=== PATIENT | male | born 1965 | race Caucasian/White ===

== ENCOUNTER 2018-02-13 17:37 | Emergency (ER) | payer SELFPAY, OTHER | END 2018-02-13 20:02 | disposition left against medical advice (07) | LOC: E/R 17:37 | DX: Z53.21 Procedure and treatment not carried out due to patient leaving prior to being seen by health care provider (principal) ==

== ENCOUNTER 2018-03-14 09:50 | Inpatient (IN) | payer OTHER ==
[2018-03-14] MEDS ORDERED: NACL 0.9% 3 ML SYG IV (12:30)
[2018-03-14] MEDS ORDERED: ZOLPIDEM 5 MG TAB PO (12:30)
[2018-03-14] MEDS ORDERED: ONDANSETRON 4 MG INJ IV (12:30)
[2018-03-14] MEDS: D5W-0.45 NACL + KCL 20 MEQ 1,000 ML IV ×3 (12:32→23:15)
[2018-03-14] MEDS: morphine SULFATE/PF (2 MG/2 ML) SYG IV ×3 (12:32→20:29)
[2018-03-14] MEDS: PANTOPRAZOLE 40 MG INJ IV ×2 (12:32→20:35)
[2018-03-14 12:49] LABS: ADD MAN DIFF? NO
[2018-03-14 12:50] LABS: WHITE BLOOD COUNT 4.4 10^3/ul (4.8-10.8)
[2018-03-14 12:51] LABS: BASOPHIL # 0.1 10^3/ul (0.0-0.1); BASOPHILS % 1.4 % (0.0-2.0); EOSINOPHILS # 0.1 10^3/ul (0.0-0.5); EOSINOPHILS % 2.7 % (0.0-7.0); HEMATOCRIT 41.9 % (42.0-52.0); HEMOGLOBIN 14.4 g/dl (14.0-18.0); LYMPHOCYTES # 2.2 10^3/ul (0.8-2.9); LYMPHOCYTES % 49.1 % (15.0-51.0); MEAN CORPUSCULAR HEMOGLOBIN 30.9 pg (29.0-33.0); MEAN CORPUSCULAR HGB CONC 34.4 g/dl (32.0-37.0); MEAN CORPUSCULAR VOLUME 89.9 fl (82.0-101.0); MEAN PLATELET VOLUME 8.6 fl (7.4-10.4); MONOCYTE # 0.6 10^3/ul (0.3-0.9); MONOCYTES % 13.6 % (0.0-11.0); NEUTROPHIL # 1.5 10^3/ul (1.6-7.5); PLATELET COUNT 275 10^3/UL (140-415); RED BLOOD COUNT 4.66 10^6/ul (4.70-6.10); RED CELL DISTRIBUTION WIDTH 13.8 % (11.5-14.5)
[2018-03-14 13:13] LABS: LIPASE 74 U/L (23-300)
[2018-03-14 13:23] LABS: ALANINE AMINOTRANSFERASE 19 IU/L (13-69); ALBUMIN 3.8 g/dl (3.3-4.9); ALBUMIN/GLOBULIN RATIO 1.26; ALKALINE PHOSPHATASE 67 IU/L (42-121); ANION GAP 7 (5-13); ASPARTATE AMINO TRANSFERASE 27 IU/L (15-46); BILIRUBIN,INDIRECT 0.2 mg/dl (0-1.1); BILIRUBIN,TOTAL 0.2 mg/dl (0.2-1.3); BLOOD UREA NITROGEN 14 mg/dl (7-20); CALCIUM 8.5 mg/dl (8.4-10.2); CARBON DIOXIDE 31 mmol/L (21-31); CHLORIDE 100 mmol/L (97-110); CREATININE 0.67 mg/dl (0.61-1.24); Estimated GFR > 60 mL/min (>60); GLUCOSE 80 mg/dl (70-220); POTASSIUM 4.4 mmol/L (3.5-5.1); SODIUM 138 mmol/L (135-144); TOTAL PROTEIN 6.8 g/dl (6.1-8.1)
[2018-03-14] MEDS ORDERED: PROPOFOL 40 ML (17:55)
[2018-03-14] MEDS ORDERED: LIDOCAINE 2% (SDV) 5 ML INJ (17:55)
[2018-03-14] MEDS: SUCRALFATE 1 GM TAB PO (20:33)
[2018-03-14] MEDS: LORAZEPAM 2 MG INJ IV (21:00)
[2018-03-15] MEDS: D5W-0.45 NACL + KCL 20 MEQ 1,000 ML IV ×7 (01:27→23:00)
[2018-03-15] MEDS: morphine SULFATE/PF (2 MG/2 ML) SYG IV ×4 (01:40→20:45)
[2018-03-15] MEDS: PANTOPRAZOLE 40 MG INJ IV ×2 (05:38→18:12)
[2018-03-15 05:55] LABS: ADD MAN DIFF? NO
[2018-03-15 05:59] LABS: BASOPHIL # 0.1 10^3/ul (0.0-0.1); EOSINOPHILS # 0.1 10^3/ul (0.0-0.5); EOSINOPHILS % 2.1 % (0.0-7.0); HEMATOCRIT 39.3 % (42.0-52.0); HEMOGLOBIN 13.4 g/dl (14.0-18.0); LYMPHOCYTES # 1.5 10^3/ul (0.8-2.9); LYMPHOCYTES % 29.2 % (15.0-51.0); MEAN CORPUSCULAR HEMOGLOBIN 30.8 pg (29.0-33.0); MEAN CORPUSCULAR HGB CONC 34.1 g/dl (32.0-37.0); MEAN CORPUSCULAR VOLUME 90.3 fl (82.0-101.0); MEAN PLATELET VOLUME 8.9 fl (7.4-10.4); MONOCYTE # 0.6 10^3/ul (0.3-0.9); MONOCYTES % 11.3 % (0.0-11.0); NEUTROPHIL # 2.9 10^3/ul (1.6-7.5); NEUTROPHILS % 56.4 % (39.0-77.0); PLATELET COUNT 232 10^3/UL (140-415); RED BLOOD COUNT 4.35 10^6/ul (4.70-6.10); RED CELL DISTRIBUTION WIDTH 13.2 % (11.5-14.5)
[2018-03-15 05:59] LABS: WHITE BLOOD COUNT 5.1 10^3/ul (4.8-10.8)
[2018-03-15 06:18] LABS: ALANINE AMINOTRANSFERASE 25 IU/L (13-69); ALBUMIN 3.3 g/dl (3.3-4.9); ALBUMIN/GLOBULIN RATIO 1.26; ALKALINE PHOSPHATASE 72 IU/L (42-121); ANION GAP 7 (5-13); ASPARTATE AMINO TRANSFERASE 24 IU/L (15-46); BILIRUBIN,INDIRECT 0.5 mg/dl (0-1.1); BILIRUBIN,TOTAL 0.5 mg/dl (0.2-1.3); BLOOD UREA NITROGEN 8 mg/dl (7-20); CALCIUM 8.5 mg/dl (8.4-10.2); CARBON DIOXIDE 30 mmol/L (21-31); CHLORIDE 101 mmol/L (97-110); CREATININE 0.61 mg/dl (0.61-1.24); Estimated GFR > 60 mL/min (>60); GLUCOSE 109 mg/dl (70-220); PHOSPHORUS 3.9 mg/dl (2.5-4.9); POTASSIUM 4.1 mmol/L (3.5-5.1); SODIUM 138 mmol/L (135-144); TOTAL PROTEIN 5.9 g/dl (6.1-8.1)
[2018-03-15 06:28] LABS: HEMOGLOBIN A1C 4.9 % (0-5.9)
[2018-03-15] MEDS: LORAZEPAM 2 MG INJ IV ×2 (08:11→18:08)
[2018-03-15] MEDS: SUCRALFATE 1 GM TAB PO ×4 (08:11→20:45)
[2018-03-15] MEDS: CHLORDIAZEPOXIDE 25 MG CAP PO ×2 (13:25→21:59)
[2018-03-15] MEDS: VENLAFAXINE 75 MG TABLET PO (13:27)
[2018-03-15] MEDS: PROPRANOLOL 40 MG TAB PO (20:47)
[2018-03-16] MEDS: morphine SULFATE/PF (2 MG/2 ML) SYG IV ×4 (01:11→14:52)
[2018-03-16] MEDS: D5W-0.45 NACL + KCL 20 MEQ 1,000 ML IV ×5 (04:07→23:00)
[2018-03-16] MEDS: PANTOPRAZOLE 40 MG INJ IV ×2 (05:41→17:46)
[2018-03-16 06:02] LABS: ADD MAN DIFF? NO
[2018-03-16 06:08] LABS: BASOPHILS % 0.7 % (0.0-2.0); EOSINOPHILS # 0.1 10^3/ul (0.0-0.5); EOSINOPHILS % 2.4 % (0.0-7.0); HEMATOCRIT 36.5 % (42.0-52.0); HEMOGLOBIN 12.6 g/dl (14.0-18.0); LYMPHOCYTES # 1.5 10^3/ul (0.8-2.9); MEAN CORPUSCULAR HEMOGLOBIN 30.9 pg (29.0-33.0); MEAN CORPUSCULAR HGB CONC 34.5 g/dl (32.0-37.0); MEAN CORPUSCULAR VOLUME 89.5 fl (82.0-101.0); MEAN PLATELET VOLUME 8.9 fl (7.4-10.4); MONOCYTE # 0.6 10^3/ul (0.3-0.9); MONOCYTES % 9.5 % (0.0-11.0); NEUTROPHIL # 3.6 10^3/ul (1.6-7.5); NEUTROPHILS % 62.1 % (39.0-77.0); PLATELET COUNT 208 10^3/UL (140-415); RED BLOOD COUNT 4.08 10^6/ul (4.70-6.10); RED CELL DISTRIBUTION WIDTH 12.9 % (11.5-14.5)
[2018-03-16 06:08] LABS: WHITE BLOOD COUNT 5.9 10^3/ul (4.8-10.8)
[2018-03-16 06:33] LABS: ANION GAP 5 (5-13); BLOOD UREA NITROGEN 5 mg/dl (7-20); CALCIUM 8.3 mg/dl (8.4-10.2); CARBON DIOXIDE 28 mmol/L (21-31); CHLORIDE 100 mmol/L (97-110); CREATININE 0.55 mg/dl (0.61-1.24); Estimated GFR > 60 mL/min (>60); GLUCOSE 107 mg/dl (70-220); SODIUM 133 mmol/L (135-144)
[2018-03-16] MEDS: [UNRECOGNIZED DRUG - REMARK] XX (08:03)
[2018-03-16] MEDS: SUCRALFATE 1 GM TAB PO ×4 (08:04→21:21)
[2018-03-16] MEDS: VENLAFAXINE 75 MG TABLET PO (08:04)
[2018-03-16] MEDS: CHLORDIAZEPOXIDE 25 MG CAP PO ×3 (08:04→21:19)
[2018-03-16] MEDS: PROPRANOLOL 40 MG TAB PO ×2 (08:05→21:21)
[2018-03-16] MEDS: THIAMINE 100 MG TAB PO (08:08)
[2018-03-16] MEDS: LORAZEPAM 2 MG INJ IV ×3 (11:18→23:00)
[2018-03-16] MEDS: MULTIVITAMINS 10 ML, FOLIC ACID 1 MG in SOD CHLORIDE 0.9% 1,000 ML IVPB (11:44)
[2018-03-16] MEDS: morphine LIQ (10 MG/5 ML) CUP PO ×2 (19:10→23:00)
[2018-03-17] MEDS: D5W-0.45 NACL + KCL 20 MEQ 1,000 ML IV ×3 (06:47→17:47)
[2018-03-17] MEDS: PANTOPRAZOLE 40 MG INJ IV ×2 (06:58→17:47)
[2018-03-17] MEDS: [UNRECOGNIZED DRUG - REMARK] XX (09:00)
[2018-03-17] MEDS: THIAMINE 100 MG TAB PO (09:06)
[2018-03-17] MEDS: CHLORDIAZEPOXIDE 25 MG CAP PO ×3 (09:06→20:44)
[2018-03-17] MEDS: PROPRANOLOL 40 MG TAB PO ×2 (09:06→20:54)
[2018-03-17] MEDS: VENLAFAXINE 75 MG TABLET PO (09:06)
[2018-03-17] MEDS: SUCRALFATE 1 GM TAB PO ×4 (09:06→20:44)
[2018-03-17] MEDS: MULTIVITAMINS 10 ML, FOLIC ACID 1 MG in SOD CHLORIDE 0.9% 1,000 ML IVPB (09:07)
[2018-03-17] MEDS: morphine LIQ (10 MG/5 ML) CUP PO ×2 (10:31→20:44)
[2018-03-17] MEDS: LORAZEPAM 2 MG INJ IV ×3 (10:34→22:03)
[2018-03-18] MEDS: morphine LIQ (10 MG/5 ML) CUP PO ×5 (00:40→22:49)
[2018-03-18] MEDS: D5W-0.45 NACL + KCL 20 MEQ 1,000 ML IV ×5 (00:42→20:15)
[2018-03-18] MEDS: PANTOPRAZOLE 40 MG INJ IV ×2 (06:30→17:11)
[2018-03-18] MEDS: MULTIVITAMINS 10 ML, FOLIC ACID 1 MG in SOD CHLORIDE 0.9% 1,000 ML IVPB (07:38)
[2018-03-18] MEDS: SUCRALFATE 1 GM TAB PO ×4 (08:32→20:09)
[2018-03-18] MEDS: THIAMINE 100 MG TAB PO (08:32)
[2018-03-18] MEDS: VENLAFAXINE 75 MG TABLET PO (08:32)
[2018-03-18] MEDS: CHLORDIAZEPOXIDE 25 MG CAP PO ×3 (08:32→20:10)
[2018-03-18] MEDS: PROPRANOLOL 40 MG TAB PO ×2 (08:33→20:10)
[2018-03-18] MEDS: [UNRECOGNIZED DRUG - REMARK] XX (08:35)
[2018-03-18] MEDS: LORAZEPAM 2 MG INJ IV (20:10)
[2018-03-19] MEDS: D5W-0.45 NACL + KCL 20 MEQ 1,000 ML IV ×3 (03:17→12:07)
[2018-03-19] MEDS: PANTOPRAZOLE 40 MG INJ IV (06:34)
[2018-03-19] MEDS: [UNRECOGNIZED DRUG - REMARK] XX (09:00)
[2018-03-19] MEDS: CHLORDIAZEPOXIDE 25 MG CAP PO ×2 (09:36→13:28)
[2018-03-19] MEDS: VENLAFAXINE 75 MG TABLET PO (09:36)
[2018-03-19] MEDS: THIAMINE 100 MG TAB PO (09:36)
[2018-03-19] MEDS: SUCRALFATE 1 GM TAB PO ×2 (09:37→13:28)
[2018-03-19] MEDS: PROPRANOLOL 40 MG TAB PO (09:37)
[2018-03-19] MEDS: MULTIVITAMINS 10 ML, FOLIC ACID 1 MG in SOD CHLORIDE 0.9% 1,000 ML IVPB (09:38)
[2018-03-19] MEDS: morphine LIQ (10 MG/5 ML) CUP PO (09:47)
[2018-03-19] MEDS: POLYETHYLENE GLYCOL 17 GM PACKET PO (13:28)
== END 2018-03-19 17:30 | DRG 379 ==
LOC: 2NE 09:50
PROVIDERS: Internal Medicine
PROC: 0DB68ZX Excision of Stomach, Via Natural or Artificial Opening Endoscopic, Diagnostic (ICD-10-PCS; principal; 2018-03-14 17:23)
DX: K25.4 Chronic or unspecified gastric ulcer with hemorrhage (principal); E78.5 Hyperlipidemia, unspecified; F17.200 Nicotine dependence, unspecified, uncomplicated; K29.21 Alcoholic gastritis with bleeding; F10.20 Alcohol dependence, uncomplicated; F32.9 Major depressive disorder, single episode, unspecified; I10 Essential (primary) hypertension
CPT/HCPCS: 80048; 80053; 83036; 83690; 83735; 84100; 85025; 88305; 88312